=== PATIENT | female | born 1985 | race African-American/Black ===

== ENCOUNTER 2017-04-28 10:17 | Emergency (ER) | payer OTHER ==
[~2017-04-28] VITALS: Ht 160 cm; Wt 68.0 kg
[~2017-04-28 10:17] MED LIST: APAP500; BENADRYL25 MG; COLACE 100 MG100 MG; DERMOPLAST SPRA56 ML; HYDROCORTISONE30 G9; IBUPROFEN 800800 M1; IRON325 PO; LANOLIN56 GM; PRENATAL PO; TUCKS MEDICATE1 EAC1
[2017-04-28 11:14] LABS: URINE BILIRUBIN NEGATIVE (Negative); URINE BLOOD NEGATIVE (Negative); URINE COLOR YELLOW; URINE GLUCOSE-RANDOM* NEGATIVE (Negative); URINE KETONES NEGATIVE (Negative); URINE NITRITE NEGATIVE (Negative); URINE PROTEIN (DIPSTICK) NEGATIVE (Negative); URINE SPECIFIC GRAVITY >= 1.030 (1.003-1.035)
[2017-04-28] MEDS ORDERED: BENTYL 20 MG TA20 M1 PO (11:46)
[2017-04-28 12:13] VITALS: BP 111/68
== END 2017-04-28 12:13 | disposition home or self-care (01) ==
LOC: ER 10:17
PROVIDERS: Nurse Practitioner Family
DX: R10.84 Generalized abdominal pain (principal)

== ENCOUNTER 2017-06-26 10:03 | Emergency (ER) | payer OTHER ==
[~2017-06-26] VITALS: Ht 160 cm; Wt 65.8 kg
[~2017-06-26 10:03] MED LIST changes: +BENTYL 20 MG TA20 M1 PO
[2017-06-26 10:35] LABS: URINE BILIRUBIN NEGATIVE (Negative); URINE BLOOD NEGATIVE (Negative); URINE COLOR YELLOW; URINE GLUCOSE-RANDOM* NEGATIVE (Negative); URINE KETONES NEGATIVE (Negative); URINE NITRITE POSITIVE (Negative); URINE PROTEIN (DIPSTICK) NEGATIVE (Negative); URINE SPECIFIC GRAVITY 1.015 (1.005-1.035); URINE UROBILINOGEN 0.2 E.U./dl (0.2-1.0)
[2017-06-26 11:03] LABS: CASTS None Seen /LPF (None Seen); CRYSTALS None Seen /LPF (None Seen); SQUAMOUS 4-10 Moderate /LPF (0-3)
[2017-06-26 11:04] LABS: URINE RBC None Seen /HPF (0-2); URINE WBC 0-5 Rare /HPF (0-5)
[2017-06-26] MEDS ORDERED: NAPROSYN500 MG PO (12:22)
[2017-06-26] MEDS ORDERED: PHENERGAN 25 MG25 M1 PO (12:24)
[2017-06-26 12:39] VITALS: BP 103/62
[2017-06-27 13:11] LABS: CHLAMYDIA TRACHOMATIS-PCR Negative (Negative); NEISSERIA GONORRHEA-PCR Negative (Negative)
== END 2017-06-26 12:40 | disposition home or self-care (01) ==
LOC: ER 10:03
PROVIDERS: Physician Assistant
DX: R10.2 Pelvic and perineal pain (principal)

== ENCOUNTER 2017-09-17 19:07 | Emergency (ER) | payer OTHER ==
[~2017-09-17] VITALS: Ht 160 cm; Wt 74.8 kg
--- NOTE | ~2017-09-17 | EKG ---
[address] [address] ELECTROCARDIOGRAM REPORT Name: JUANI TAVARES Room #: DEP Mamta#: [id number] Admission: 09/17/17 Attend Phys: Discharge: 09/17/17 Date of : 89 Report #: [id number] THIS REPORT FOR: //name// [facility] ED Test Date: 2017-09-17 Test Time: 19:15:26 Pat Name: JUANI TAVARES Department: Room: Gender: F Banking Attorney: VICTORINO : 1985 Requested By: Trent Sheets Order Number: [id number] MD: Jeffrey Masterson Measurements Intervals [place] Rate: 96 P: 38 GA: 152 QRS: 44 QRSD: 87 T: 20 QT: 336 QTc: 425 Interpretive Statements Sinus rhythm No significant abnormality No previous ECG available for comparison Electronically Signed On 09-18-2017 7:19:22 CDT by Jeffrey Masterson [email or web address] <ELECTRONICALLY SIGNED> By: Jeffrey Masterson MD, [facility] 09/18/17 0719 [id number] 14 Jeffrey Masterson MD, FACC /EPI
[~2017-09-17 19:07] MED LIST changes: +NAPROSYN500 MG PO; +PHENERGAN 25 MG25 M1 PO
[2017-09-17 20:13] LABS: ANION GAP 7 mmol/L (7-16); BUN 8 mg/dL (7-18); CALCIUM 9.3 mg/dL (8.5-10.1); CHLORIDE 100 mmol/L (98-107); CO2 26 mmol/L (21-32); CREATININE 0.6 mg/dL (0.6-1.0); GLUCOSE 98 mg/dL (74-106); POTASSIUM 3.3 mmol/L (3.5-5.1); SODIUM 133 mmol/L (136-145)
[2017-09-17 20:14] LABS: ABSOLUTE NEUTROPHILS 6.2 thou/uL (1.4-8.2); BASOPHILS 0.1 % (0.0-2.0); EOSINOPHILS 2.1 % (0.0-3.0); HEMATOCRIT 32.6 % (37.0-47.0); HEMOGLOBIN 11.3 gm/dL (12.0-15.0); LYMPHOCYTES 28.8 % (24.0-44.0); MCH 33.3 pg (26.0-34.0); MCHC 34.6 g/dL (28.0-37.0); MCV 96.2 fL (80.0-100.0); MONOCYTES 6.3 % (1.0-8.0); PLATELET COUNT 195 thou/uL (150-400); POLYS 62.7 % (36.0-66.0); RBC 3.39 mil/uL (4.20-5.00); RDW 12.3 % (10.5-14.5); WBC 9.9 thou/uL (4.0-11.0)
[2017-09-17 20:23] LABS: TROPONIN-I < 0.04 ng/mL (<0.06)
[2017-09-17] MEDS ORDERED: REGLAN 10 MG TA10 MG PO (23:03)
== END 2017-09-17 23:24 | disposition home or self-care (01) ==
LOC: ER 19:07
PROVIDERS: Emergency Medicine
DX: O26.892 Other specified pregnancy related conditions, second trimester (principal); R06.02 Shortness of breath; Z3A.14 14 weeks gestation of pregnancy; Z87.891 Personal history of nicotine dependence